=== PATIENT | male | born 1935 | race Caucasian/White ===

== ENCOUNTER 2017-07-03 16:19 | Inpatient (IN) | payer MEDICARE, OTHER ==
[~2017-07-03] VITALS: Ht 182.9 cm; Wt 85.0 kg
[2017-07-03 16:33] VITALS: BP 134/83; PULSE 60; RESP 16; TEMP 99.7; O2SAT 96
[2017-07-03 17:36] LABS: AUTOMATED NEUTROPHIL # 3.9 TH/MM3 (1.8-7.7); BASOPHIL % 0.3 % (0.0-2.0); EOSINOPHIL % 0.7 % (0.0-4.0); HEMATOCRIT 35.2 % (39.0-51.0); LYMPH % 21.9 % (9.0-44.0); LYMPHOCYTE # 1.2 TH/MM3 (1.0-4.8); MEAN CELL VOLUME 92.8 FL (80.0-100.0); MEAN CORPUSCULAR HEMOGLOBIN 31.6 PG (27.0-34.0); MEAN CORPUSCULAR HGB CONC 34.1 % (32.0-36.0); MEAN PLATELET VOLUME 9.1 FL (7.0-11.0); MONOCYTE # 0.4 TH/MM3 (0-0.9); NEUT % 70.1 % (16.0-70.0); PLATELET COUNT 144 TH/MM3 (150-450); RED BLOOD COUNT 3.79 MIL/MM3 (4.50-5.90); RED CELL DISTRIBUTION WIDTH 13.6 % (11.6-17.2); WHITE BLOOD COUNT 5.5 TH/MM3 (4.0-11.0)
[2017-07-03 18:02] LABS: ALBUMIN 3.5 GM/DL (3.4-5.0); ALKALINE PHOSPHATASE 51 U/L (45-117); ALT (GPT) LESS THAN 6 U/L (12-78); AST (GOT) 20 U/L (15-37); BICARBONATE 26.9 MEQ/L (21.0-32.0); BLOOD UREA NITROGEN 28 MG/DL (7-18); CALCIUM 8.5 MG/DL (8.5-10.1); CHLORIDE 104 MEQ/L (98-107); CREATININE 1.08 MG/DL (0.60-1.30); GLOMERULAR FILTRATION RATE 66 ML/MIN (>89); GLUCOSE,RANDOM 266 MG/DL (74-106); SODIUM (NA) 136 MEQ/L (136-145); TOTAL BILIRUBIN ADULT 0.2 MG/DL (0.2-1.0)
[2017-07-03] MEDS ORDERED: ACETAMINOPHEN 325 MG TAB PO ONE (21:00)
[2017-07-03 21:03] VITALS: BP 180/90; PULSE 100; RESP 18; TEMP 97.5; O2SAT 100
--- NOTE | 2017-07-03 21:07 | PD ---
HPI Chief Complaint: Medical Clearance Time Seen by Provider: 20:45 Travel History International Travel<30 days: No Contact w/Intl Traveler<30days: No Traveled to known affect area: No History of Present Illness HPI 82-year-old white male presents to emergency department under [place]cher act by PD. The patient has repetitively called 911. According to the Butcher act the patient does not recall this. He seems confused at times. The patient here states that he does recall calling 911. Police were concerned that he may suffer from self-harm due to increasing confusion. He states that person taking care of him locks him in the house periodically and leaves for 6-8 hours. The patient was recently treated Sunday at [facility] for a UTI. He states it is currently taking antibiotic but he does not know what it is. Patient denies any suicidal or homicidal ideation. PFSH Past Medical History Narrative Medical Arrhythmia, pacemaker, Parkinson's disease, hernia Medical History: Unable to Obtain Tetanus Vaccination: Unknown Past Surgical History Narrative Surgical Pacer Surgical History: Unable to Obtain Social History Alcohol Use: No Tobacco Use: No Substance Use: No Allergies-Medications (Allergen,Severity, Reaction): Coded Allergies: No Known Allergies (Verified Allergy, Severe, 12/01/03) Reported Meds & Prescriptions Reported Meds & Active Scripts Active Active Prescriptions or Reported Medications Unobtainable Review of Systems General / Constitutional: No: Fever, Chills Eyes: No: Visual changes HENT: No: Headaches Cardiovascular: No: Chest Pain or Discomfort Respiratory: No: Shortness of Breath Gastrointestinal: No: Abdominal Pain Genitourinary: No: Dysuria Musculoskeletal: No: Pain Skin: No Rash Neurologic: Positive: Weakness, Coordination Problem (positive Parkinson's tremor) Psychiatric: No: Depression, Suicidal Ideations, Homicidal Ideation Endocrine: No: Polydipsia Hematologic/Lymphatic: No: Easy Bruising Physical Exam Narrative GENERAL: Well-nourished, well-developed patient. SKIN: Warm and dry. Patient has multiple areas of ecchymosis which are in various stages of healing. He has dry flaky skin HEAD: Normocephalic and atraumatic. EYES: No scleral icterus. No injection or drainage. ENT: No nasal drainage noted. Mucous membranes pink. Airway patent. NECK: Supple, trachea midline. Moves head freely without obvious discomfort. CARDIOVASCULAR: Heart sounds somewhat distant. Regular rate and rhythm without murmurs, gallops, or rubs. RESPIRATORY: Breath sounds equal bilaterally. No accessory muscle use. GASTROINTESTINAL: Abdomen soft, non-tender, nondistended. EXTREMITIES: No cyanosis or edema. BACK: Nontender without obvious deformity. No CVA tenderness. NEURO: Patient is alert and oriented. Patient has tremor of Parkinson's. Normal speech. PSYCH: No delusions. No auditory or visual hallucinations. Data Data Last Documented VS Vital Signs Date Time Temp Pulse Resp B/P (MAP) Pulse Ox O2 Delivery O2 Flow Rate FiO2 07/03/17 21:15 78 16 194/88 (123) 99 Room Air 07/03/17 21:03 97.5 Orders Orders Complete Blood Count With Diff (07/03/17 16:42) Comprehensive Metabolic Panel (07/03/17 16:42) Urinalysis - C+S If Indicated (07/03/17 16:42) Psych Screen (07/03/17 16:42) Lactic Acid (07/03/17 20:46) Acetaminophen (Tylenol) (07/03/17 21:00) Urine Culture (07/03/17 20:45) Ceftriaxone Inj (Rocephin Inj) (07/03/17 22:30) Insulin Aspart Inj (Novolog Inj) (07/03/17 22:30) Labs Laboratory Tests Test 07/03/17 16:49 07/03/17 20:45 07/03/17 21:30 White Blood Count 5.5 TH/MM3 Red Blood Count 3.79 MIL/MM3 Hemoglobin 12.0 GM/DL Hematocrit 35.2 % Mean Corpuscular Volume 92.8 FL Mean Corpuscular Hemoglobin 31.6 PG Mean Corpuscular Hemoglobin Concent 34.1 % Red Cell Distribution Width 13.6 % Platelet Count 144 TH/MM3 Mean Platelet Volume 9.1 FL Neutrophils (%) (Auto) 70.1 % Lymphocytes (%) (Auto) 21.9 % Monocytes (%) (Auto) 7.0 % Eosinophils (%) (Auto) 0.7 % Basophils (%) (Auto) 0.3 % Neutrophils # (Auto) 3.9 TH/MM3 Lymphocytes # (Auto) 1.2 TH/MM3 Monocytes # (Auto) 0.4 TH/MM3 Eosinophils # (Auto) 0.0 TH/MM3 Basophils # (Auto) 0.0 TH/MM3 CBC Comment DIFF FINAL Differential Comment Blood Urea Nitrogen 28 MG/DL Creatinine 1.08 MG/DL Random Glucose 266 MG/DL Total Protein 7.0 GM/DL Albumin 3.5 GM/DL Calcium Level 8.5 MG/DL Alkaline Phosphatase 51 U/L Aspartate Amino Transf (AST/SGOT) 20 U/L Alanine Aminotransferase (ALT/SGPT) LESS THAN 6 U/L Total Bilirubin 0.2 MG/DL Sodium Level 136 MEQ/L Potassium Level 4.4 MEQ/L Chloride Level 104 MEQ/L Carbon Dioxide Level 26.9 MEQ/L Anion Gap 5 MEQ/L Estimat Glomerular Filtration Rate 66 ML/MIN Urine Color YELLOW Urine Turbidity CLEAR Urine pH 5.0 Urine Specific [place] 1.022 Urine Protein TRACE mg/dL Urine Glucose (UA) 1000 mg/dL Urine Ketones NEG mg/dL Urine Occult Blood NEG Urine Nitrite NEG Urine Bilirubin NEG Urine Urobilinogen LESS THAN 2.0 MG/DL Urine Leukocyte Esterase SMALL Urine RBC 2 /hpf Urine WBC 13 /hpf Urine Squamous Epithelial Cells 1 /hpf Urine Bacteria RARE /hpf Microscopic Urinalysis Comment CULTURE INDICATED Lactic Acid Level 0.9 mmol/L [facility] Medical Decision Making Medical Screen Exam Complete: Yes Emergency Medical Condition: Yes Medical Record Reviewed: Yes Interpretation(s) Laboratory Tests Test 07/03/17 16:49 07/03/17 20:45 07/03/17 21:30 White Blood Count 5.5 TH/MM3 Red Blood Count 3.79 MIL/MM3 Hemoglobin 12.0 GM/DL Hematocrit 35.2 % Mean Corpuscular Volume 92.8 FL Mean Corpuscular Hemoglobin 31.6 PG Mean Corpuscular Hemoglobin Concent 34.1 % Red Cell Distribution Width 13.6 % Platelet Count 144 TH/MM3 Mean Platelet Volume 9.1 FL Neutrophils (%) (Auto) 70.1 % Lymphocytes (%) (Auto) 21.9 % Monocytes (%) (Auto) 7.0 % Eosinophils (%) (Auto) 0.7 % Basophils (%) (Auto) 0.3 % Neutrophils # (Auto) 3.9 TH/MM3 Lymphocytes # (Auto) 1.2 TH/MM3 Monocytes # (Auto) 0.4 TH/MM3 Eosinophils # (Auto) 0.0 TH/MM3 Basophils # (Auto) 0.0 TH/MM3 CBC Comment DIFF FINAL Differential Comment Blood Urea Nitrogen 28 MG/DL Creatinine 1.08 MG/DL Random Glucose 266 MG/DL Total Protein 7.0 GM/DL Albumin 3.5 GM/DL Calcium Level 8.5 MG/DL Alkaline Phosphatase 51 U/L Aspartate Amino Transf (AST/SGOT) 20 U/L Alanine Aminotransferase (ALT/SGPT) LESS THAN 6 U/L Total Bilirubin 0.2 MG/DL Sodium Level 136 MEQ/L Potassium Level 4.4 MEQ/L Chloride Level 104 MEQ/L Carbon Dioxide Level 26.9 MEQ/L Anion Gap 5 MEQ/L Estimat Glomerular Filtration Rate 66 ML/MIN Urine Color YELLOW Urine Turbidity CLEAR Urine pH 5.0 Urine Specific [place] 1.022 Urine Protein TRACE mg/dL Urine Glucose (UA) 1000 mg/dL Urine Ketones NEG mg/dL Urine Occult Blood NEG Urine Nitrite NEG Urine Bilirubin NEG Urine Urobilinogen LESS THAN 2.0 MG/DL Urine Leukocyte Esterase SMALL Urine RBC 2 /hpf Urine WBC 13 /hpf Urine Squamous Epithelial Cells 1 /hpf Urine Bacteria RARE /hpf Microscopic Urinalysis Comment CULTURE INDICATED Lactic Acid Level 0.9 mmol/L CBC Diagram 07/03/17 16:49 Differential Diagnosis MDM: High Differential diagnoses: Schizophrenia, schizoaffective disorder, bipolar, anxiety, depression, adjustment reaction, mood disorder NOS, ODD, depressive disorder NOS, dementia, dementia with agitation, psychosis NOS, substance induced mood disorder, DMDD, Asperger syndrome, infection,electrolyte abnormality, malingering. Narrative Course Mental health screening discussed with the patient. Psychiatric screen ordered. Patient is given 650 mg of Tylenol by mouth. Patient has a UTI. He's given 1 g Rocephin IV. He is also given 4 units of Novolin R subcutaneous for his elevated glucose. The patient been medically cleared. This is medical clearance for psychiatric admission, UTI, hyperglycemia Diagnosis Primary Impression: Medical clearance for psychiatric admission Additional Impressions: UTI hyperglycemia Scripts Unable to Obtain Active Prescriptions or Reported Meds Condition: Iván Amador Jul 03, 2017 21:07
[2017-07-03 21:15] VITALS: BP 194/88; PULSE 78; RESP 16; O2SAT 99
[2017-07-03 21:57] LABS: BACTERIA, URINE RARE /hpf; BILIRUBIN, URINE NEG (NEG); BLOOD, URINE NEG (NEG); GLUCOSE,URINE 1000 mg/dL (NEG); KETONE, URINE NEG (NEG); NITRITE,URINE NEG (NEG); SQUAMOUS EPITHELIAL CELL URINE 1 /hpf (0-5); URINE COLOR YELLOW (YELLW/STRAW); URINE LEUKOCYTE ESTERASE SMALL (NEG)
[2017-07-03] MEDS ORDERED: INSULIN ASPART 1,000 UNITS/10 ML VIAL SQ ONE (22:30)
[2017-07-03] MEDS ORDERED: cefTRIAXone INJ 1,000 MG in SODIUM CHLORIDE 0.9% INJ 100 ML IV ONE (22:30)
[2017-07-03] MEDS ORDERED: LORazepam 0.5 MG TAB age > 65 yrs PO PRN (23:45)
[2017-07-03] MEDS ORDERED: LORazepam 2 MG/ML VIAL - age > 65 yrs IM PRN (23:45)
[2017-07-03] MEDS ORDERED: ALUMINUM/MAGNESIUM/SIMETH 30 ML CUP PO PRN (23:45)
[2017-07-03] MEDS ORDERED: MAGNESIUM HYDROXIDE SUSP 30 ML CUP PO PRN (23:45)
[2017-07-03] MEDS ORDERED: ACETAMINOPHEN 325 MG TAB PO PRN (23:45)
--- NOTE | 2017-07-04 00:27 | RADRPT ---
EXAM DATE/TIME: 07/04/2017 00:13 [place] COMPARISON: No previous studies available for comparison. INDICATIONS : Altered mental status. RADIATION DOSE: 69.15 CTDIvol (mGy) MEDICAL HISTORY : Dementia. SURGICAL HISTORY : None. ENCOUNTER: Initial ACUITY: 1 day PAIN SCALE: 0/10 LOCATION: cranial TECHNIQUE: Multiple contiguous axial images were obtained of the head. Using automated exposure control and adj ustment of the mA and/or kV according to patient size, radiation dose was kept as low as reasonably a chievable to obtain optimal diagnostic quality images. DICOM format image data is available electro nically for review and comparison. FINDINGS: CEREBRUM: The ventricles are normal for age. No evidence of midline shift, mass lesion, hemorrhage or acute in farction. No extra-axial fluid collections are seen. POSTERIOR FOSSA: The cerebellum and brainstem are intact. The 4th ventricle is midline. The cerebellopontine angle i s unremarkable. EXTRACRANIAL: The visualized portion of the orbits is intact. SKULL: The calvaria is intact. No evidence of skull fracture. CONCLUSION: Negative noncontrast CT. Tim Spring MD on July 04, 2017 at 0:25 Board Certified Radiologist. This report was verified electronically.
[2017-07-04 00:37] VITALS: BP 173/81
[2017-07-04 02:47] VITALS: BP 162/82; PULSE 62; RESP 18; TEMP 97.6; O2SAT 99
[2017-07-04 05:30] VITALS: BP 174/83; PULSE 70; RESP 20; TEMP 98; O2SAT 98
--- NOTE | 2017-07-04 07:59 | EKG ---
Date Performed: 07/03/2017 Time Performed: 20:42:59 PTAGE: 82 years EKG: PROBABLE ATRIAL FIBRILLATION BASELINE ARTIFACT ABNORMAL ECG NO PREVIOUS TRACING DOCTOR: Juventino Gee Interpretating Date/Time 07/04/2017 07:56:03
[2017-07-04] MEDS: NICOTINE 21 MG/24 HR PATCH T-DERMAL SCH (08:24)
[2017-07-04] MEDS ORDERED: GLUCAGON 1 MG/ML VIAL OTHER PRN (11:00)
[2017-07-04] MEDS ORDERED: DEXTROSE 50% IN WATER 50 ML VIAL(D50) IV PUSH PRN (11:00)
[2017-07-04 11:04] LABS: BICARBONATE 27.3 MEQ/L (21.0-32.0); BLOOD UREA NITROGEN 20 MG/DL (7-18); CALCIUM 8.5 MG/DL (8.5-10.1); CHLORIDE 102 MEQ/L (98-107); CHOLESTEROL 175 MG/DL (120-200); GLOMERULAR FILTRATION RATE 72 ML/MIN (>89); GLUCOSE,RANDOM 202 MG/DL (74-106); SODIUM (NA) 136 MEQ/L (136-145); TRIGLYCERIDES 117 MG/DL (42-150)
--- NOTE | 2017-07-04 11:10 | PD.CONS ---
HPI Service [facility] Consult Requested By Reason for Consult Medical management Primary Care Physician Unknown Diagnoses: History of Present Illness This is an 82-year-old male who apparently was Butcher acted and brought to the ED by PD after he was repeatedly calling 911. Patient does not know how he got here and states that he is feeling very bad and he needs to lay down. He is able to give me a history, although not sure how good of a historian he is. He reports a PMH of DM, HTN, glaucoma, hypercholesteremia, IBS , and Parkinson's. He is alert and oriented to self, city, and time. He repeatedly states "help me I am on the verge of collapse". He denies any fevers , chills, nausea, vomiting, or diarrhea. He does endorse dysuria, no frequency or hematuria. He also states that he has pneumonia and that he needs help. Denies any SOB, cough or chest pain. Spoke with nurse who states patient apparently lives with a caregiver. Review of Systems ROS Limitations: Poor Historian Except as stated in HPI: all other systems reviewed are Neg Past Family Social History Allergies: Coded Allergies: No Known Allergies (Verified Allergy, Severe, 12/01/03) Past Medical History HTN DM hypercholesteremia glaucoma of both eyes IBS Parkinson's PVD Past Surgical History Bilateral leg artery surgeries ("to clean them out") eye surgery Pacemaker placement Reported Medications Reported Meds & Active Scripts Active Reported Florastor (Saccharomyces Boulardii) 250 Mg Cap 250 Mg PO BID Percocet (Oxycodone-Acetaminophen) 5-325 mg Tab 1 Tab PO Q6H PRN Zofran (Ondansetron HCl) 8 Mg Tab 8 Mg PO Q8HR PRN Xanax (Alprazolam) 0.5 Mg Tab 0.5 Mg PO TID Sinemet (Carbidopa-Levodopa) 25-100 Mg Tab 3 Tab PO Q8HR Requip (Ropinirole HCl) 0.5 Mg Tab 0.5 Mg PO TID Dorzolamide Opth Drops (Dorzolamide HCl) 2% Soln 1 Drop EACH EYE DAILY Latanoprost Opth Drops (Latanoprost) 0.005% Drops 1 Drop EACH EYE HS Refrigerate until opened. Atorvastatin (Atorvastatin Calcium) 10 Mg Tab 10 Mg PO HS Gabapentin 400 Mg Cap 200 Mg PO HS Gabapentin 100 Mg Cap 100 Mg PO TID Escitalopram (Escitalopram Oxalate) 10 Mg Tab 10 Mg PO DAILY Singulair (Montelukast Sodium) 10 Mg Tab 10 Mg PO DAILY Novolog Inj (Insulin Aspart) 1,000 Unit/10 Ml Vial 0 SQ DIRECTED Sliding Scale as directed. Lantus Inj (Insulin Glargine) 1,000 Unit/10 Ml Vial 17 Units SQ HS Active Ordered Medications Current Medications Medications (Trade) Dose Ordered Sig/Candi Route Start Time Stop Time Status Last Admin (Ativan) 0.5 mg Q12H PRN PO 07/03/17 23:45 (Ativan Inj) 0.5 mg Q12H PRN IM 07/03/17 23:45 (Tylenol) 650 mg Q4H PRN PO 07/03/17 23:45 (Milk Of Magnesia Liq) 30 ml DAILY PRN PO 07/03/17 23:45 (Mag-Al Plus Susp Liq) 30 ml Q6H PRN PO 07/03/17 23:45 (Habitrol 21 Mg Patch.24 Hr) 1 patch DAILY T-DERMAL 07/04/17 09:00 Miscellaneous Information 1 HS T-DERMAL 07/04/17 21:00 (NovoLOG SUPPLEMENTAL SCALE) 1 ACHS SLIDING SCALE SQ 07/04/17 12:00 07/04/17 11:31 (Norvasc) 5 mg DAILY PO 07/04/17 10:45 07/04/17 11:31 (D50w (Vial) Inj) 50 ml UNSCH PRN IV PUSH 07/04/17 11:00 (Glucagon Inj) 1 mg UNSCH PRN OTHER 07/04/17 11:00 (Benadryl) 50 mg HS PRN PO 07/04/17 14:45 (Atarax) 50 mg Q6H PRN PO 07/04/17 14:45 (Xanax) 0.5 mg TID PO 07/04/17 18:00 (Lipitor) 10 mg HS PO 07/04/17 21:00 (Sinemet 25-100 Mg) 3 tab Q8HR PO 07/04/17 22:00 (Trusopt 2% Opth Soln) 1 drop DAILY EACH EYE 07/05/17 09:00 (Lexapro) 10 mg DAILY PO 07/05/17 09:00 (Neurontin) 100 mg TID PO 07/04/17 18:00 (Neurontin) 80,000 mg HS PO 07/04/17 21:00 UNV (Xalatan 0.005% Opth Soln) 1 drop HS EACH EYE 07/04/17 21:00 (Singulair) 10 mg DAILY PO 07/05/17 09:00 (Requip) 0.5 mg TID PO 07/04/17 18:00 (Zofran Odt) 8 mg Q8HR PRN PO 07/04/17 15:15 Family History Mother: [place] Social History Denies the use of tobacco, alcohol, or illicit drug use. Lives with caregiver Teresa 1 daughter who lives in [place] Physical Exam Vital Signs Vital Signs Date Time Temp Pulse Resp B/P (MAP) Pulse Ox O2 Delivery O2 Flow Rate FiO2 07/04/17 05:30 98.0 70 20 174/83 (113) 98 07/04/17 02:47 97.6 62 18 162/82 (108) 99 07/04/17 00:37 88 18 173/81 (111) 98 07/03/17 21:15 78 16 194/88 (123) 99 Room Air 07/03/17 21:03 97.5 100 18 180/90 (120) 100 Room Air 07/03/17 16:33 99.7 60 16 134/83 (100) 96 Physical Exam GENERAL: This is a well-nourished, well-developed patient, appears anxious. SKIN: No rashes, ecchymoses or lesions. Cool and dry. HEAD: Atraumatic. Normocephalic. EYES: Pupils equal round and reactive. No scleral icterus. No injection or drainage. ENT: Nose without bleeding, purulent drainage. Throat without erythema. Airway patent. NECK: Trachea midline. No JVD. CARDIOVASCULAR: Regular rate and rhythm without murmurs, gallops, or rubs. RESPIRATORY: Clear to auscultation. Breath sounds equal bilaterally. No wheezes , rales, or rhonchi. GASTROINTESTINAL: Abdomen soft, non-tender, nondistended. No palpable masses. No guarding. Normoactive bowel sounds in all quadrants. MUSCULOSKELETAL: Extremities without clubbing, cyanosis, or edema. No joint effusion, or edema noted. NEUROLOGICAL: Awake and alert, oriented to self, city, and time. Cranial nerves grossly intact. Moves all extremities and following commands. Bilateral hand tremors noted. Normal speech. Laboratory Laboratory Tests Test 07/03/17 16:49 07/03/17 20:45 07/03/17 21:30 07/04/17 09:06 White Blood Count 5.5 Red Blood Count 3.79 Hemoglobin 12.0 Hematocrit 35.2 Mean Corpuscular Volume 92.8 Mean Corpuscular Hemoglobin 31.6 Mean Corpuscular Hemoglobin Concent 34.1 Red Cell Distribution Width 13.6 Platelet Count 144 Mean Platelet Volume 9.1 Neutrophils (%) (Auto) 70.1 Lymphocytes (%) (Auto) 21.9 Monocytes (%) (Auto) 7.0 Eosinophils (%) (Auto) 0.7 Basophils (%) (Auto) 0.3 Neutrophils # (Auto) 3.9 Lymphocytes # (Auto) 1.2 Monocytes # (Auto) 0.4 Eosinophils # (Auto) 0.0 Basophils # (Auto) 0.0 CBC Comment DIFF FINAL Differential Comment Blood Urea Nitrogen 28 Creatinine 1.08 Random Glucose 266 Total Protein 7.0 Albumin 3.5 Calcium Level 8.5 Alkaline Phosphatase 51 Aspartate Amino Transf (AST/SGOT) 20 Alanine Aminotransferase (ALT/SGPT) LESS THAN 6 Total Bilirubin 0.2 Sodium Level 136 Potassium Level 4.4 Chloride Level 104 Carbon Dioxide Level 26.9 Anion Gap 5 Estimat Glomerular Filtration Rate 66 Urine Color YELLOW Urine Turbidity CLEAR Urine pH 5.0 Urine Specific [place] 1.022 Urine Protein TRACE Urine Glucose (UA) 1000 Urine Ketones NEG Urine Occult Blood NEG Urine Nitrite NEG Urine Bilirubin NEG Urine Urobilinogen LESS THAN 2.0 Urine Leukocyte Esterase SMALL Urine RBC 2 Urine WBC 13 Urine Squamous Epithelial Cells 1 Urine Bacteria RARE Microscopic Urinalysis Comment CULTURE INDICATED Lactic Acid Level 0.9 Date/Time Source Procedure Growth Status 07/03/17 20:45 Urine Random Urine Urine Culture Pending Received Result Diagram: 07/03/17 1649 07/03/17 1649 Assessment and Plan Assessment and Plan 82-year- old male with PMH significant for HTN, DM, hypercholesteremia, glaucoma , PVD and Parkinson's who presented to the ED under a PD Butcher Act after patient repeatedly called 911. [facility] consulted for medical management. Acute adjustment disorder -Treatment per psychiatry - CT of head negative - + UA which could contribute to mood changes given the fact that he is elderly UTI -Provided with 1 mg of IV Rocephin while in the ED, no fevers overnight or today. -Recheck culture and sensitivity on urine pending. HTN, uncontrolled Hypercholesteremia -Start amlodipine 5 mg daily, continue trending BPs and adjust medications accordingly. - Continue home dose of Atorvastatin DM II, uncontrolled -Hemoglobin A1c 9.2 -ADA diet, Accu-Cheks with insulin sliding scale -Patient on 17 units of Lantus at bedtime at home, will start Lantus 10 units tonight -Continue following blood sugars and adjusting accordingly. Parkinson's - Continue Sinement 25-100, and Requip - Fall precautions Glaucoma - Continue Xalatan eye gtts DVT prophylaxis-ambulation Thank you for this consultation, will continue to follow along. Angelica Bray Jul 04, 2017 11:10
[2017-07-04] MEDS ORDERED: ZOFR8TAB PO (11:19)
[2017-07-04] MEDS ORDERED: DORZ2SOL EACH EYE (11:19)
[2017-07-04] MEDS ORDERED: MONT10TA2 PO (11:19)
[2017-07-04] MEDS ORDERED: GABA100C4 PO (11:19)
[2017-07-04] MEDS ORDERED: ALPR.5 PO (11:19)
[2017-07-04] MEDS ORDERED: LATA0.002 EACH EYE (11:19)
[2017-07-04] MEDS ORDERED: FLOR250C PO (11:19)
[2017-07-04] MEDS ORDERED: ESCI10TA PO (11:19)
[2017-07-04] MEDS ORDERED: ATOR10TA15 PO (11:19)
[2017-07-04] MEDS ORDERED: PERC5TAB12 PO (11:19)
[2017-07-04] MEDS ORDERED: LANTUS2P SQ (11:19)
[2017-07-04] MEDS ORDERED: ROPI.5 PO (11:19)
[2017-07-04] MEDS ORDERED: SINE25TA PO (11:19)
[2017-07-04] MEDS ORDERED: GABA400C5 PO (11:19)
[2017-07-04] MEDS ORDERED: NOVOLOGP2 SQ (11:19)
[2017-07-04 11:30] LABS: CHOLESTEROL/ HDL RATIO 3.79 RATIO; FREE T4 0.97 NG/DL (0.76-1.46); HDL CHOLESTEROL 46.1 MG/DL (40.0-60.0); LDL CHOLESTEROL 106 MG/DL (0-99)
[2017-07-04] MEDS: amLODIPine BESYLATE 5 MG TAB PO SCH (11:31)
[2017-07-04] MEDS: INSULIN ASPART SUPPLEMENTAL SCALE SQ SCH ×3 (11:31→21:00)
[2017-07-04 13:10] LABS: HEMOGLOBIN A1C 9.2 % (4.3-6.0)
[2017-07-04] MEDS ORDERED: diphenhydrAMINE HCL 50 MG CAP PO PRN (14:45)
[2017-07-04] MEDS ORDERED: hydrOXYzine HCL 50 MG TAB PO PRN (14:45)
--- NOTE | 2017-07-04 15:09 | HHI.HP ---
Provisional Diagnosis Admission Date Jul 03, 2017 at 23:22 [place]. Adjustment disorder with mixed disturbances of emotion and conduct t 43.25 Parkinson's disease G 20 Certification of Person's Competence To Provide Express and Informed Consent I have personally examined Jose Chisholm , a person being served at [facility] on, Jul 04, 2017 14:55. Express and informed consent means consent voluntarily given in writing, by a competent person, after sufficient explanation and disclosure of the subject matter involved to enable the person to make a knowing and willful decision without any element of force, fraud, deceit, duress, or other form of constraint or coercion. This person is 18 years of age or older, is not now known to be incompetent to consent to treatment with a guardian advocate, and does not have a health care surrogate or proxy currently making medical treatment decisions. I have found this person to be one of the following: [] Competent to provide express and informed consent, as defined above, for voluntary admission to this facility and is competent to provide express and informed consent for treatment. He/she has the consistent capacity to make well reasoned, willful, and knowing decisions concerning his or her medical or mental health treatment. The person fully and consistently understands the purpose of the admission for examination/placement and is fully capable of personally exercising all rights assured [place] [] Incompetent to provide express and informed consent to voluntary admission, and this is incompetent to provide express and informed consent to treatment. The person must be transferred to involuntary status and a petition for a guardian advocate filed with the Circuit Court. [xxx] Refusing to provide express and informed consent to voluntary admission but is competent to provide express and informed consent for treatment. The person must be discharged or transferred to involuntary status. Form shall be completed within 24 hours of a person's arrival at the receiving facility and filed in the clinical record of each person: 1. Admitted on a voluntary basis 2. Permitted to provide express and informed consent to his/her own treatment 3. Allowed to transfer from involuntary to voluntary status 4. Prior to permitting a person to consent to his or her own treatment after having been previously found incompetent to consent to treatment. History of Present Illness Capacity: Lacks Capacity (patient less capacity sign permission patient has capacity to sign for medication) HPI She is an 82-year-old white male who comes here under [place] act signed of the [employer] [employer] dated 07/03/17 and 2:55 PM the document reviewed. States Mr. Chisholm calls 911 constantly and upon arrival does not remember doing so when spoken to him he seems heavily confused at home and states he feels he may Phan keeps saying "it will be the end of me" and seems to need help sure it has apparently refused services from [facility] and he is believe that without assistance he may harm himself. Patient seen screened in the ED urine toxicology negative bladder: Negative. At the present time patient resting quietly in his bed. Nurse Susan present throughout session patient has some obvious flagrant Parkinson type tremor is noted both upper extremities right more than left. He does have tremulous speech however his oriented to person place time and situation. Though it appears she has some delusional type ideation related to the relationship with his caregiver. However DCF is involved. Patient is financially well off clinically be some financial issues going on in any event at this time patient does denies suicidality denies homicidality. Voices or visions. Patient denies any prior psychiatric contact or hospitalizations psychotropic medications though he is on Lexapro at the present time. Patient does have a caregiver in the home with them. Is uncertain about any other family members at this time. At this time patient does meet criteria for acute inpatient psychiatric hospitalization of the [place]cher act I'll do first opinion request second opinion both feel he does have capacity at this time. Though I will reconsider that and reevaluate that in the morning Review of Systems Constitutional: DENIES: Diaphoretic episodes, Fatigue, Fever, Weight gain, Weight loss, Chills, Dizziness, Change in appetite, Night Sweats Endocrine: DENIES: Heat/cold intolerance, Polydipsia, Polyuria, Polyphagia Eyes: DENIES: Blurred vision, Diplopia, Eye inflammation, Eye pain, Vision loss , Photosensitivity, Double Vision Ears, nose, mouth, throat: DENIES: Tinnitus, Hearing loss, Vertigo, Nasal discharge, Oral lesions, Throat pain, Hoarseness, Ear Pain, Running Nose, Epistaxis, Sinus Pain, Toothache, Odynophagia Respiratory: DENIES: Apneas, Cough, Snoring, Wheezing, Hemoptysis, Sputum production, Shortness of breath Cardiovascular: DENIES: Chest pain, Palpitations, Syncope, Dyspnea on Exertion , PND, Lower Extremity Edema, Orthopnea, Claudication Gastrointestinal: DENIES: Abdominal pain, Black stools, Bloody stools, Constipation, Diarrhea, Nausea, Vomiting, Difficulty Swallowing, Anorexia Genitourinary: DENIES: Sexual dysfunction, Urinary frequency, Urinary incontinence, Urgency, Hematuria, Dysuria, Nocturia, Penile Discharge, Testicular Pain, Testicular Swelling Musculoskeletal: DENIES: Joint pain, Muscle aches, Stiffness, Joint Swelling, Back pain, Neck pain Integumentary: DENIES: Abnormal pigmentation, Nail changes, Pruritus, Rash Hematologic/lymphatic: DENIES: Bruising, Lymphadenopathy Immunologic/allergic: DENIES: Eczema, Urticaria Neurologic: DENIES: Abnormal gait, Headache, Localized weakness, Paresthesias, Seizures, Speech Problems, Tremor, Poor Balance Psychiatric: COMPLAINS OF: Anxiety, Depression Past Psych History Psychological trauma history Patient denies Violence risk - others (6 mos) Low Violence risk - self (6 mos) Low to moderate Substance Abuse History Drugs/Alcohol past 12 months Patient denies Past Family Social History Coded Allergies: No Known Allergies (Verified Allergy, Severe, 12/01/03) Reported Medications Saccharomyces Boulardii (Florastor) 250 Mg Cap, 250 MG PO BID for Nutritional Supplement, CAP 0 Refills 07/04/17 Oxycodone-Acetaminophen (Percocet) 5-325 mg Tab, 1 TAB PO Q6H Y for PAIN, TAB 0 Refills 07/04/17 Ondansetron (Zofran) 8 Mg Tab, 8 MG PO Q8HR Y for NAUSEA OR VOMITING, TAB 0 Refills 07/04/17 Alprazolam (Xanax) 0.5 Mg Tab, 0.5 MG PO TID, TAB 0 Refills 07/04/17 Carbidopa-Levodopa (Sinemet) 25-100 Mg Tab, 3 TAB PO Q8HR for Parkinson Disease Mgmt, #90 TAB 0 Refills 07/04/17 Ropinirole (Requip) 0.5 Mg Tab, 0.5 MG PO TID, #90 TAB 0 Refills 07/04/17 Dorzolamide Opth Drops (Dorzolamide Opth Drops) 2% Soln, 1 DROP EACH EYE DAILY for Glaucoma, #1 BOTTLE 0 Refills 07/04/17 Latanoprost Opth Drops (Latanoprost Opth Drops) 0.005% Drops, 1 DROP EACH EYE HS for Glaucoma, #2.5 ML 0 Refills Refrigerate until opened. 07/04/17 Atorvastatin (Atorvastatin) 10 Mg Tab, 10 MG PO HS for Cholesterol Management, # 30 TAB 0 Refills 07/04/17 Gabapentin (Gabapentin) 400 Mg Cap, 200 CAP PO HS, #30 CAP 0 Refills 07/04/17 Gabapentin (Gabapentin) 100 Mg Cap, 100 MG PO TID, #90 CAP 0 Refills 07/04/17 Escitalopram (Escitalopram) 10 Mg Tab, 10 MG PO DAILY, #30 TAB 0 Refills 07/04/17 Montelukast (Singulair) 10 Mg Tab, 10 MG PO DAILY, #30 TAB 0 Refills 07/04/17 Insulin Aspart Inj (Novolog Inj) 1,000 Unit/10 Ml Vial, 0 SQ DIRECTED for Blood Sugar Management, #10 ML 0 Refills Sliding Scale as directed. 07/04/17 Insulin Glargine Inj (Lantus Inj) 1,000 Unit/10 Ml Vial, 17 UNITS SQ HS for Blood Sugar Management, VIAL 0 Refills 07/04/17 Current Medications Medications (Trade) Dose Ordered Sig/Candi Route Start Time Stop Time Status Last Admin (Ativan) 0.5 mg Q12H PRN PO 07/03/17 23:45 (Ativan Inj) 0.5 mg Q12H PRN IM 07/03/17 23:45 (Tylenol) 650 mg Q4H PRN PO 07/03/17 23:45 (Milk Of Magnesia Liq) 30 ml DAILY PRN PO 07/03/17 23:45 (Mag-Al Plus Susp Liq) 30 ml Q6H PRN PO 07/03/17 23:45 (Habitrol 21 Mg Patch.24 Hr) 1 patch DAILY T-DERMAL 07/04/17 09:00 Miscellaneous Information 1 HS T-DERMAL 07/04/17 21:00 (NovoLOG SUPPLEMENTAL SCALE) 1 ACHS SLIDING SCALE SQ 07/04/17 12:00 07/04/17 11:31 (Norvasc) 5 mg DAILY PO 07/04/17 10:45 07/04/17 11:31 (D50w (Vial) Inj) 50 ml UNSCH PRN IV PUSH 07/04/17 11:00 (Glucagon Inj) 1 mg UNSCH PRN OTHER 07/04/17 11:00 Family Psych History Patient denies Social History 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 2) Patient verbal able access healthcare Physical Exam Patient medically cleared ED exam reviewed and agreed with at the present time patient resting quietly in bed he is in no acute distress though others anxiety and his tremors noted. Is in no respiratory distress no complaints of abdominal pain Vital Signs Vital Signs Date Time Temp Pulse Resp B/P (MAP) Pulse Ox O2 Delivery O2 Flow Rate FiO2 07/04/17 05:30 98.0 70 20 174/83 (113) 98 07/03/17 21:15 Room Air I/O 07/04/17 07/04/17 07/05/17 08:00 16:00 00:00 Intake Total 0 ml Balance 0 ml Lab Results Test 07/03/17 16:49 07/03/17 20:45 07/03/17 21:30 07/04/17 09:06 White Blood Count 5.5 TH/MM3 Red Blood Count 3.79 MIL/MM3 Hemoglobin 12.0 GM/DL Hematocrit 35.2 % Mean Corpuscular Volume 92.8 FL Mean Corpuscular Hemoglobin 31.6 PG Mean Corpuscular Hemoglobin Concent 34.1 % Red Cell Distribution Width 13.6 % Platelet Count 144 TH/MM3 Mean Platelet Volume 9.1 FL Neutrophils (%) (Auto) 70.1 % Lymphocytes (%) (Auto) 21.9 % Monocytes (%) (Auto) 7.0 % Eosinophils (%) (Auto) 0.7 % Basophils (%) (Auto) 0.3 % Neutrophils # (Auto) 3.9 TH/MM3 Lymphocytes # (Auto) 1.2 TH/MM3 Monocytes # (Auto) 0.4 TH/MM3 Eosinophils # (Auto) 0.0 TH/MM3 Basophils # (Auto) 0.0 TH/MM3 CBC Comment DIFF FINAL Differential Comment Blood Urea Nitrogen 28 MG/DL 20 MG/DL Creatinine 1.08 MG/DL 1.00 MG/DL Random Glucose 266 MG/DL 202 MG/DL Total Protein 7.0 GM/DL Albumin 3.5 GM/DL Calcium Level 8.5 MG/DL 8.5 MG/DL Alkaline Phosphatase 51 U/L Aspartate Amino Transf (AST/SGOT) 20 U/L Alanine Aminotransferase (ALT/SGPT) LESS THAN 6 U/L Total Bilirubin 0.2 MG/DL Sodium Level 136 MEQ/L 136 MEQ/L Potassium Level 4.4 MEQ/L 4.2 MEQ/L Chloride Level 104 MEQ/L 102 MEQ/L Carbon Dioxide Level 26.9 MEQ/L 27.3 MEQ/L Anion Gap 5 MEQ/L 7 MEQ/L Estimat Glomerular Filtration Rate 66 ML/MIN 72 ML/MIN Urine Color YELLOW Urine Turbidity CLEAR Urine pH 5.0 Urine Specific [place] 1.022 Urine Protein TRACE mg/dL Urine Glucose (UA) 1000 mg/dL Urine Ketones NEG mg/dL Urine Occult Blood NEG Urine Nitrite NEG Urine Bilirubin NEG Urine Urobilinogen LESS THAN 2.0 MG/DL Urine Leukocyte Esterase SMALL Urine RBC 2 /hpf Urine WBC 13 /hpf Urine Squamous Epithelial Cells 1 /hpf Urine Bacteria RARE /hpf Microscopic Urinalysis Comment CULTURE INDICATED Lactic Acid Level 0.9 mmol/L Hemoglobin A1c 9.2 % Triglycerides Level 117 MG/DL Cholesterol Level 175 MG/DL LDL Cholesterol 106 MG/DL HDL Cholesterol 46.1 MG/DL Cholesterol/HDL Ratio 3.79 RATIO Vitamin B12 Level 490 PG/ML 25-Hydroxy Vitamin D Total 20.8 ng/ML Free Thyroxine 0.97 NG/DL Thyroid Stimulating Hormone 3rd Gen 1.540 uIU/ML Date/Time Source Procedure Growth Status 07/03/17 20:45 Urine Random Urine Urine Culture Pending Received Mental Status Examination Appearance: Appropriate Consciousness: Alert Orientation: Person, Place, Date/Time Motor Activity: Other Speech: Hesitant, Stuttering Language: Adequate Fund of Knowledge: Adequate Attention and Concentration: Other (fair) Memory: Impaired Mood: Sad Affect: Other (increase range and intensity) Thought Process & Associations: Loose associations, Circumstantial Thought Content: Other (disorganized) Hallucination Type: None (denies) Delusion Type: Paranoid (mildly focused on cartography teacher) Suicidal Ideation: No Suicidal Plan: No Suicidal Intention: No Homicidal Ideation: No Homicidal Plan: No Homicidal Intention: No Insight: Poor Judgment: Poor Assessment & Plan Problem List: (1) Acute adjustment disorder with mixed disturbance of emotions and conduct ICD Codes: F43.25 - Adjustment disorder with mixed disturbance of emotions and conduct (2) Parkinsons disease ICD Codes: G20 - Parkinson's disease Assessment & Plan Estimated LOS: 3-5 days this time patient meets criteria for involuntary psychiatric hospitalization of the [place]cher act I'll do first opinion request second opinion. I feel this of capacity sign for medication. Both hospitalist consult with us later patient is patient's Parkinson's disease and other medical issues. We will continue his medications per the med reconciliation Discharge Planning To be determined Request HC Surrog/Guard Advoc?: No Darrell Lomeli MD Jul 04, 2017 15:09
[2017-07-04] MEDS ORDERED: ONDANSETRON ODT 4 MG TAB PO PRN (15:15)
[2017-07-04] MEDS: GABAPENTIN 100 MG CAP PO SCH ×2 (17:49→21:13)
[2017-07-04] MEDS: ALPRAZolam 0.5 MG TAB PO SCH (17:49)
[2017-07-04 18:32] VITALS: BP 168/72; PULSE 77; RESP 20; TEMP 98.2; O2SAT 98
[2017-07-04] MEDS ORDERED: NON-FORMULARY DRUG (Saccharomyces Boulardii (Florastor) 250 MG) PO SCH (21:00)
[2017-07-04] MEDS ORDERED: INSULIN DETEMIR 100 UNITS/ML VIAL SQ SCH (21:00)
[2017-07-04] MEDS: REMOVE OLD NICOTINE PATCH T-DERMAL SCH (21:00)
[2017-07-04] MEDS: ATORVASTATIN 10 MG TAB PO SCH (21:12)
[2017-07-04] MEDS: CARBIDOPA/LEVODOPA 25 MG/100 MG TAB PO SCH (21:13)
[2017-07-04] MEDS: LATANOPROST 0.005% OPHT SOLN 2.5 ML BTL EACH EYE SCH (21:17)
[2017-07-05 05:00] VITALS: BP 130/71; PULSE 60; RESP 15; TEMP 97.8; O2SAT 95
[2017-07-05] MEDS: CARBIDOPA/LEVODOPA 25 MG/100 MG TAB PO SCH ×3 (05:55→20:44)
[2017-07-05] MEDS: INSULIN ASPART SUPPLEMENTAL SCALE SQ SCH ×4 (07:45→21:25)
[2017-07-05] MEDS: ALPRAZolam 0.5 MG TAB PO SCH ×3 (08:45→18:48)
[2017-07-05] MEDS: ESCITALOPRAM OXALATE 10 MG TAB PO SCH (08:45)
[2017-07-05] MEDS: MONTELUKAST SODIUM 10 MG TAB PO SCH (08:45)
[2017-07-05] MEDS: amLODIPine BESYLATE 5 MG TAB PO SCH (08:45)
[2017-07-05] MEDS: GABAPENTIN 100 MG CAP PO SCH ×4 (08:46→20:43)
[2017-07-05] MEDS: NICOTINE 21 MG/24 HR PATCH T-DERMAL SCH (08:48)
[2017-07-05] MEDS: DORZOLAMIDE 2% OPTH SOLN 200 DROP/10 ML BTLO EACH EYE SCH (09:00)
--- NOTE | 2017-07-05 11:25 | HHI.PYPN ---
Subjective Remarks Patient seen in day room with nurse Halina, chart reviewed, patient discussed with nurse. Patient compliant medication. Patient continues the severe tremors related to his Parkinson's disease, he is somewhat anxious also though he is oriented to place time and situation. He does denies suicidality homicidality voices or visions. Need to verify with caregiver patient situation this home. Review of Systems Except as stated in HPI: all other systems reviewed are Neg Mental Status Examination Appearance: Appropriate Consciousness: Alert Orientation: Person, Place, Date/Time Motor Activity: Other Speech: Hesitant, Stuttering Language: Adequate Fund of Knowledge: Adequate Attention and Concentration: Other (fair) Memory: Impaired Mood: Sad Affect: Other (increase range and intensity) Thought Process & Associations: Loose associations, Circumstantial Thought Content: Other (disorganized) Hallucination Type: None (denies) Delusion Type: Paranoid (mildly focused on town clerk) Suicidal Ideation: No Suicidal Plan: No Suicidal Intention: No Homicidal Ideation: No Homicidal Plan: No Homicidal Intention: No Insight: Poor Judgment: Poor Results Labs Date/Time Source Procedure Growth Status 07/03/17 20:45 Urine Random Urine Urine Culture - Preliminary IMMATURE GROWTH - REINCUBATE Resulted Vitals/IOs Vital Signs Date Time Temp Pulse Resp B/P (MAP) Pulse Ox O2 Delivery O2 Flow Rate FiO2 07/05/17 05:00 97.8 60 15 130/71 (90) 95 07/03/17 21:15 Room Air Intake and Output 07/05/17 07/05/17 07/06/17 08:00 16:00 00:00 Intake Total 0 ml 360 ml Balance 0 ml 360 ml Assessment & Plan Problem List: (1) Acute adjustment disorder with mixed disturbance of emotions and conduct ICD Codes: F43.25 - Adjustment disorder with mixed disturbance of emotions and conduct (2) Parkinsons disease ICD Codes: G20 - Parkinson's disease Assessment & Plan Estimated LOS: days patient seems somewhat anxious and perhaps slightly depressed. It appears she has somewhat of a chaotic relationship with his caregiver. This may be further investigated. For now continue treatment Justification for Cont. Inpt. This time patient will decompensate if not place to appropriate level of care Discharge Planning Hopefully to return to his own home Request HC Surrog/Guard Advoc?: No Darrell Lomeli MD Jul 05, 2017 11:25
--- NOTE | 2017-07-05 11:39 | HHI.PR ---
Subjective Remarks Follow-up for UTI, HTN, and DM. Patient seen and examined up to chair in day room. He tells me that someone has taken his belongings which were in a blue bag and locked them up. He sates that around 11pm last night they locked his things up and he is agitated because he desperately need these. He denies any cough, SOB, fevers, chills, N/V/D, he does endorse dysuria and states that it bass when he urinates. Spoke with nurse who tells me that patient has had some confusion and is worried that his caregiver will take his money and he will not have access to his bank accounts. Objective Vitals Vital Signs Date Time Temp Pulse Resp B/P (MAP) Pulse Ox O2 Delivery O2 Flow Rate FiO2 07/05/17 05:00 97.8 60 15 130/71 (90) 95 07/04/17 18:32 98.2 77 20 168/72 (104) 98 I/O 07/04/17 07/04/17 07/04/17 07/05/17 07/05/17 07/05/17 07:00 15:00 23:00 07:00 15:00 23:00 Intake Total 0 ml 480 ml 0 ml 360 ml Balance 0 ml 480 ml 0 ml 360 ml Intake Oral 0 ml 480 ml 0 ml 360 ml # Voids 2 1 2 Result Diagram: 07/03/17 1649 07/04/17 0906 Imaging Last Impressions Head CT 07/03/17 0000 Signed Impressions: Service Date/Time: Tuesday, July 04, 2017 00:13 - CONCLUSION: Negative noncontrast CT. Tim Spring MD Objective Remarks GENERAL: This is a well-nourished, well-developed patient, appears anxious. SKIN: Cool and dry. HEAD: Atraumatic. Normocephalic. EYES: Pupils equal round and reactive. No scleral icterus. No injection or drainage. ENT: Airway patent. NECK: Trachea midline. No JVD. CARDIOVASCULAR: Regular rate and rhythm without murmurs, gallops, or rubs. RESPIRATORY: Clear to auscultation. Breath sounds equal bilaterally. No wheezes , rales, or rhonchi. GASTROINTESTINAL: Abdomen soft, non-tender, nondistended. No guarding. Normoactive bowel sounds in all quadrants. MUSCULOSKELETAL: Extremities without clubbing, cyanosis, or edema. No joint effusion, or edema noted. NEUROLOGICAL: Awake and alert, some confusion. Cranial nerves grossly intact. Moves all extremities and following commands. Bilateral hand tremors noted. Normal speech. A/P Assessment and Plan 82-year- old male with PMH significant for HTN, DM, hypercholesteremia, glaucoma , PVD and Parkinson's who presented to the ED under a PD [place]cher Act after patient repeatedly called 911. [facility] consulted for medical management. Acute adjustment disorder -Treatment per psychiatry - CT of head negative - + UA with gram negative rods, could contribute to mood changes given the fact that he is elderly UTI -Provided with 1 mg of IV Rocephin while in the ED, no fevers overnight or today. - Culture growing gram negative rods, started on PO Cipro 500mg BID - +dysuria, afebrile HTN, uncontrolled Hypercholesteremia - Contineu amlodipine 5 mg daily, BP stable - Continue home dose of Atorvastatin DM II, uncontrolled -Hemoglobin A1c 9.2 -ADA diet, Accu-Cheks with insulin sliding scale -Patient on 17 units of Lantus at bedtime at home, Increase Lantus to 13 units HS -Continue following blood sugars and adjusting accordingly. Parkinson's - Continue Sinement 25-100, and Requip - Fall precautions Glaucoma - Continue Xalatan eye gtts DVT prophylaxis-ambulation Discussed with nurse. Angelica Bray Jul 05, 2017 11:38
--- NOTE | 2017-07-05 11:47 | PD.PSY.CON ---
Provisional Diagnosis Admission Date Jul 03, 2017 at 23:22 [place]. Adjustment disorder with mixed disturbances of emotion and conduct t 43.25 Parkinson's disease G 20 History of Present Illness Service Psychiatry Consult Requested By Psychiatry Reason for Consult Second opinion Primary Care Physician Unknown HPI She is an 82-year-old white male who comes here under [place] act signed of the [email or web address] dated 07/03/17 and 2:55 PM the document reviewed. States Mr. Chisholm calls 911 constantly and upon arrival does not remember doing so when spoken to him he seems heavily confused at home and states he feels he may Phan keeps saying "it will be the end of me" and seems to need help sure it has apparently refused services from [facility] and he is believe that without assistance he may harm himself. Patient seen screened in the ED urine toxicology negative bladder: Negative. At the present time patient resting quietly in his bed. Nurse Susan present throughout session patient has some obvious flagrant Parkinson type tremor is noted both upper extremities right more than left. He does have tremulous speech however his oriented to person place time and situation. Though it appears she has some delusional type ideation related to the relationship with his caregiver. However DCF is involved. Patient is financially well off clinically be some financial issues going on in any event at this time patient does denies suicidality denies homicidality. Voices or visions. Patient denies any prior psychiatric contact or hospitalizations psychotropic medications though he is on Lexapro at the present time. Patient does have a caregiver in the home with them. Is uncertain about any other family members at this time. At this time patient does meet criteria for acute inpatient psychiatric hospitalization of the [place]cher act I'll do first opinion request second opinion both feel he does have capacity at this time. Though I will reconsider that and reevaluate that in the morning. The patient is an 82 years old man, brought to the hospital on the [place] at after he was found by police very confused, illogical and unable to give any logical answer. Consulted to me for second opinion. Patient is very confused, he reports good mood, denies suicidal and homicidal ideation, he denies visual and auditory hallucinations, but the patient doesn't know the reason of his hospitalization, he is disoriented in time and place. Past Family Social History Coded Allergies: No Known Allergies (Verified Allergy, Severe, 12/01/03) Reported Medications Saccharomyces Boulardii (Florastor) 250 Mg Cap, 250 MG PO BID for Nutritional Supplement, CAP 0 Refills 07/04/17 Oxycodone-Acetaminophen (Percocet) 5-325 mg Tab, 1 TAB PO Q6H Y for PAIN, TAB 0 Refills 07/04/17 Ondansetron (Zofran) 8 Mg Tab, 8 MG PO Q8HR Y for NAUSEA OR VOMITING, TAB 0 Refills 07/04/17 Alprazolam (Xanax) 0.5 Mg Tab, 0.5 MG PO TID, TAB 0 Refills 07/04/17 Carbidopa-Levodopa (Sinemet) 25-100 Mg Tab, 3 TAB PO Q8HR for Parkinson Disease Mgmt, #90 TAB 0 Refills 07/04/17 Ropinirole (Requip) 0.5 Mg Tab, 0.5 MG PO TID, #90 TAB 0 Refills 07/04/17 Dorzolamide Opth Drops (Dorzolamide Opth Drops) 2% Soln, 1 DROP EACH EYE DAILY for Glaucoma, #1 BOTTLE 0 Refills 07/04/17 Latanoprost Opth Drops (Latanoprost Opth Drops) 0.005% Drops, 1 DROP EACH EYE HS for Glaucoma, #2.5 ML 0 Refills Refrigerate until opened. 07/04/17 Atorvastatin (Atorvastatin) 10 Mg Tab, 10 MG PO HS for Cholesterol Management, # 30 TAB 0 Refills 07/04/17 Gabapentin (Gabapentin) 400 Mg Cap, 200 MG PO HS, #30 CAP 0 Refills 07/04/17 Gabapentin (Gabapentin) 100 Mg Cap, 100 MG PO TID, #90 CAP 0 Refills 07/04/17 Escitalopram (Escitalopram) 10 Mg Tab, 10 MG PO DAILY, #30 TAB 0 Refills 07/04/17 Montelukast (Singulair) 10 Mg Tab, 10 MG PO DAILY, #30 TAB 0 Refills 07/04/17 Insulin Aspart Inj (Novolog Inj) 1,000 Unit/10 Ml Vial, 0 SQ DIRECTED for Blood Sugar Management, #10 ML 0 Refills Sliding Scale as directed. 07/04/17 Insulin Glargine Inj (Lantus Inj) 1,000 Unit/10 Ml Vial, 17 UNITS SQ HS for Blood Sugar Management, VIAL 0 Refills 07/04/17 Current Medications Medications (Trade) Dose Ordered Sig/Candi Route Start Time Stop Time Status Last Admin (Ativan) 0.5 mg Q12H PRN PO 07/03/17 23:45 (Ativan Inj) 0.5 mg Q12H PRN IM 07/03/17 23:45 (Tylenol) 650 mg Q4H PRN PO 07/03/17 23:45 (Milk Of Magnesia Liq) 30 ml DAILY PRN PO 07/03/17 23:45 (Mag-Al Plus Susp Liq) 30 ml Q6H PRN PO 07/03/17 23:45 (Habitrol 21 Mg Patch.24 Hr) 1 patch DAILY T-DERMAL 07/04/17 09:00 Miscellaneous Information 1 HS T-DERMAL 07/04/17 21:00 (NovoLOG SUPPLEMENTAL SCALE) 1 ACHS SLIDING SCALE SQ 07/04/17 12:00 07/05/17 11:29 (Norvasc) 5 mg DAILY PO 07/04/17 10:45 07/05/17 08:45 (D50w (Vial) Inj) 50 ml UNSCH PRN IV PUSH 07/04/17 11:00 (Glucagon Inj) 1 mg UNSCH PRN OTHER 07/04/17 11:00 (Benadryl) 50 mg HS PRN PO 07/04/17 14:45 (Atarax) 50 mg Q6H PRN PO 07/04/17 14:45 (Xanax) 0.5 mg TID PO 07/04/17 18:00 07/05/17 08:45 (Lipitor) 10 mg HS PO 07/04/17 21:00 07/04/17 21:12 (Sinemet 25-100 Mg) 3 tab Q8HR PO 07/04/17 22:00 07/05/17 05:55 (Trusopt 2% Opth Soln) 1 drop DAILY EACH EYE 07/05/17 09:00 07/05/17 09:00 (Lexapro) 10 mg DAILY PO 07/05/17 09:00 07/05/17 08:45 (Neurontin) 100 mg TID PO 07/04/17 18:00 07/05/17 08:46 (Neurontin) 200 mg HS PO 07/04/17 21:00 07/04/17 21:13 (Xalatan 0.005% Opth Soln) 1 drop HS EACH EYE 07/04/17 21:00 07/04/17 21:17 (Singulair) 10 mg DAILY PO 07/05/17 09:00 07/05/17 08:45 (Requip) 0.5 mg TID PO 07/04/17 18:00 07/05/17 08:45 (Zofran Odt) 8 mg Q8HR PRN PO 07/04/17 15:15 (Levemir Inj) 10 units HS SQ 07/04/17 21:00 07/04/17 21:14 Patient's Strengths (min. 2) Patient verbal able access healthcare Physical Exam Vital Signs Vital Signs Date Time Temp Pulse Resp B/P (MAP) Pulse Ox O2 Delivery O2 Flow Rate FiO2 07/05/17 05:00 97.8 60 15 130/71 (90) 95 07/03/17 21:15 Room Air I/O 07/05/17 07/05/17 07/06/17 08:00 16:00 00:00 Intake Total 0 ml 360 ml Balance 0 ml 360 ml Lab Results Date/Time Source Procedure Growth Status 07/03/17 20:45 Urine Random Urine Urine Culture - Preliminary IMMATURE GROWTH - REINCUBATE Resulted Mental Status Examination Appearance: Appropriate Consciousness: Alert Orientation: Person, Place, Date/Time Motor Activity: Other Speech: Hesitant, Stuttering Language: Adequate Fund of Knowledge: Adequate Attention and Concentration: Other (fair) Memory: Impaired Mood: Sad Affect: Other (increase range and intensity) Thought Process & Associations: Loose associations, Circumstantial Thought Content: Other (disorganized) Hallucination Type: None (denies) Delusion Type: Paranoid (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 Reviewed the documentation. I agree and concur with Dr. Lomeli's assessment and plan. (2) Parkinsons disease ICD Codes: G20 - Parkinson's disease Assessment & Plan Estimated LOS: days Request HC Surrog/Guard Advoc?: No Roque Landeros MD Jul 05, 2017 11:47
[2017-07-05 17:33] VITALS: BP 115/55; PULSE 62; RESP 16; TEMP 98.4; O2SAT 98
[2017-07-05] MEDS: LATANOPROST 0.005% OPHT SOLN 2.5 ML BTL EACH EYE SCH (20:42)
[2017-07-05] MEDS: CIPROFLOXACIN 500 MG TAB PO SCH (20:43)
[2017-07-05] MEDS: ATORVASTATIN 10 MG TAB PO SCH (20:44)
[2017-07-05] MEDS: REMOVE OLD NICOTINE PATCH T-DERMAL SCH (21:00)
[2017-07-05] MEDS ORDERED: INSULIN DETEMIR 100 UNITS/ML VIAL SQ SCH (21:00)
[2017-07-06] MEDS: CARBIDOPA/LEVODOPA 25 MG/100 MG TAB PO SCH (05:52)
[2017-07-06 06:23] VITALS: BP 138/75; PULSE 60; RESP 17; TEMP 98.2; O2SAT 96
[2017-07-06] MEDS: INSULIN ASPART SUPPLEMENTAL SCALE SQ SCH ×2 (08:00→11:33)
[2017-07-06] MEDS: ESCITALOPRAM OXALATE 10 MG TAB PO SCH (09:00)
[2017-07-06] MEDS: DORZOLAMIDE 2% OPTH SOLN 200 DROP/10 ML BTLO EACH EYE SCH (09:00)
[2017-07-06] MEDS: NICOTINE 21 MG/24 HR PATCH T-DERMAL SCH (09:00)
[2017-07-06] MEDS: amLODIPine BESYLATE 5 MG TAB PO SCH (09:00)
[2017-07-06] MEDS: MONTELUKAST SODIUM 10 MG TAB PO SCH (09:00)
[2017-07-06] MEDS: CIPROFLOXACIN 500 MG TAB PO SCH (09:00)
[2017-07-06] MEDS: GABAPENTIN 100 MG CAP PO SCH (09:00)
[2017-07-06] MEDS: ALPRAZolam 0.5 MG TAB PO SCH (09:02)
[2017-07-06] MEDS ORDERED: ROPI.5 PO (10:56)
[2017-07-06] MEDS ORDERED: SINE25TA PO (10:56)
[2017-07-06] MEDS ORDERED: GABA100C4 PO (10:56)
[2017-07-06] MEDS ORDERED: MONT10TA2 PO (10:56)
[2017-07-06] MEDS ORDERED: ESCI10TA PO (10:56)
[2017-07-06] MEDS ORDERED: ATOR10TA15 PO (10:56)
[2017-07-06] MEDS ORDERED: GABA400C5 PO (10:56)
[2017-07-06] MEDS ORDERED: ALPR.5 PO (10:56)
[2017-07-06] MEDS ORDERED: CIPR-9 PO (10:56)
[2017-07-06] MEDS ORDERED: AMLO5 PO (10:56)
[2017-07-06] MEDS ORDERED: LATA0.002 EACH EYE (10:56)
[2017-07-06] MEDS ORDERED: DORZ2SOL EACH EYE (10:56)
[2017-07-06] MEDS ORDERED: LEVEMIR SQ (10:56)
--- NOTE | 2017-07-06 11:01 | HHI.DS ---
Psychiatry Discharge Summary Inpatient Psychiatric care?: Yes Advance Directive: No Reason Not Provided: pt not interested at this time Mental Health AdvanceDirective: No Health Care Proxy: No Admission Admission Date Jul 03, 2017 at 23:22 Admission Diagnosis: (1) Acute adjustment disorder with mixed disturbance of emotions and conduct ICD Code: F43.25 - Adjustment disorder with mixed disturbance of emotions and conduct (2) Parkinsons disease ICD Code: G20 - Parkinson's disease Brief History She is an 82-year-old white male who comes here under [place] act signed of the [place] dated 07/03/17 and 2:55 PM the document reviewed. States Mr. Chisholm calls 911 constantly and upon arrival does not remember doing so when spoken to him he seems heavily confused at home and states he feels he may Phan keeps saying "it will be the end of me" and seems to need help sure it has apparently refused services from [facility] and he is believe that without assistance he may harm himself. Patient seen screened in the ED urine toxicology negative bladder: Negative. At the present time patient resting quietly in his bed. Nurse Susan present throughout session patient has some obvious flagrant Parkinson type tremor is noted both upper extremities right more than left. He does have tremulous speech however his oriented to person place time and situation. Though it appears she has some delusional type ideation related to the relationship with his caregiver. However DCF is involved. Patient is financially well off clinically be some financial issues going on in any event at this time patient does denies suicidality denies homicidality. Voices or visions. Patient denies any prior psychiatric contact or hospitalizations psychotropic medications though he is on Lexapro at the present time. Patient does have a caregiver in the home with them. Is uncertain about any other family members at this time. At this time patient does meet criteria for acute inpatient psychiatric hospitalization of the [place] act I'll do first opinion request second opinion both feel he does have capacity at this time. Though I will reconsider that and reevaluate that in the morning. The patient is an 82 years old man, brought to the hospital on the [place] at after he was found by police very confused, illogical and unable to give any logical answer. Consulted to me for second opinion. Patient is very confused, he reports good mood, denies suicidal and homicidal ideation, he denies visual and auditory hallucinations, but the patient doesn't know the reason of his hospitalization, he is disoriented in time and place. Tobacco Use In Past 30 Days: No Tobacco Past 30 Days Alcohol Use: Never Hospital Course Patient's hospital course was uneventful, he was calm cooperative for compliant with medications. The tremulousness noticed Parkinson's remain consistent and stable. He denied suicidality homicidality voices or visions. Is in verification of the safety of his home. At this time madelaine Rubio meets criteria for inpatient psychiatric hospitalization. Thus will be discharged to himself. To follow-up home health care and follow-up through [facility] Results Blood Pressure 138 / 75 Vital Signs Date Time Temp Pulse Resp B/P (MAP) Pulse Ox O2 Delivery O2 Flow Rate FiO2 07/06/17 06:23 98.2 60 17 138/75 (96) 96 07/03/17 21:15 Room Air Laboratory Tests Test 07/03/17 16:49 07/03/17 20:45 07/03/17 21:30 07/04/17 09:06 Red Blood Count 3.79 MIL/MM3 (4.50-5.90) Hemoglobin 12.0 GM/DL (13.0-17.0) Hematocrit 35.2 % (39.0-51.0) Platelet Count 144 TH/MM3 (150-450) Neutrophils (%) (Auto) 70.1 % (16.0-70.0) Blood Urea Nitrogen 28 MG/DL (7-18) 20 MG/DL (7-18) Random Glucose 266 MG/DL (74-106) 202 MG/DL (74-106) Alanine Aminotransferase (ALT/SGPT) LESS THAN 6 U/L (12-78) Estimat Glomerular Filtration Rate 66 ML/MIN (>89) 72 ML/MIN (>89) Urine Glucose (UA) 1000 mg/dL (NEG) Urine Leukocyte Esterase SMALL (NEG) Urine WBC 13 /hpf (0-5) Urine Bacteria RARE /hpf (NONE) Hemoglobin A1c 9.2 % (4.3-6.0) LDL Cholesterol 106 MG/DL (0-99) 25-Hydroxy Vitamin D Total 20.8 ng/ML (30-100) Laboratory Results Test 07/04/17 09:06 Cholesterol Level 175 MG/DL (120-200) HDL Cholesterol 46.1 MG/DL (40.0-60.0) Hemoglobin A1c 9.2 % (4.3-6.0) LDL Cholesterol 106 MG/DL (0-99) Triglycerides Level 117 MG/DL (42-150) Summary of Procedures None done Imaging Last Impressions Head CT 07/03/17 0000 Signed Impressions: Service Date/Time: Tuesday, July 04, 2017 00:13 - CONCLUSION: Negative noncontrast CT. Tim Spring MD Pending results at discharge: No Medications # of Antipsychotic meds at D/C: 0 Approp Antipsych med options 1 - Minimum of three failed multiple trials of monotherapy. 2 - Documented plan to taper to monotherapy due to previous use of multiple meds OR cross-taper in progress at D/C. 3 - Documentation of augmentation of Clozapine. 4 - Justification other than those listed in allowable values 1-3, document here : Discharge Discharge Date: Jul 06, 2017 Discharge Diagnosis: (1) Acute adjustment disorder with mixed disturbance of emotions and conduct Diagnosis: Principal ICD Code: F43.25 - Adjustment disorder with mixed disturbance of emotions and conduct (2) Parkinsons disease Diagnosis: Secondary ICD Code: G20 - Parkinson's disease Pt Condition on Discharge: Stable Discharge Disposition: Discharge Home Discharge Instructions Diet Instructions: As Tolerated, No Restrictions Activities you can perform: Regular-No Restrictions Scheduled Appointment: [facility] (also refer home health care) Discharge Time > 30 minutes Mental Status Examination Appearance: Appropriate Consciousness: Alert Orientation: Person, Place, Date/Time Motor Activity: Other Speech: Hesitant, Stuttering Language: Adequate Fund of Knowledge: Adequate Attention and Concentration: Other (fair) Memory: Impaired Mood: Sad Affect: Other (increase range and intensity) Thought Process & Associations: Loose associations, Circumstantial Thought Content: Other (disorganized) Hallucination Type: None (denies) Delusion Type: Paranoid (mildly focused on malter 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) Suicidal Ideation: No Suicidal Plan: No Suicidal Intention: No Homicidal Ideation: No Homicidal Plan: No Homicidal Intention: No Insight: Poor Judgment: Poor Discharge/Advance Care Plan Health Problems: (1) Acute adjustment disorder with mixed disturbance of emotions and conduct (2) Parkinsons disease Goals to promote your health * To prevent worsening of your condition and complications * To maintain your health at the optimal level Directions to meet your goals Take your medications as prescribed Follow your dietary instruction Follow activity as directed Keep your appointments as scheduled Take your immunizations and boosters as scheduled If your symptoms worsen call your PCP, if no PCP go to Urgent Care Center or Emergency Room For 04/12 questions related to your inpatient stay or results of tests pending at discharge, please contact Dr. Darrell Lomeli at Smoking is Dangerous to Your Health. Avoid second hand smoking Darrell Lomeli MD Jul 06, 2017 11:01
== END 2017-07-06 12:45 | disposition home or self-care (01) | DRG 882 ==
LOC: NEPD 16:19 → NEDA 23:22 → H250 07-04 00:50
PROVIDERS: ADMIT Psychiatry & Neurology Psychiatry; ATTEND Psychiatry & Neurology Psychiatry
DX: F43.25 Adjustment disorder with mixed disturbance of emotions and conduct (principal); E11.51 Type 2 diabetes mellitus with diabetic peripheral angiopathy without gangrene; E11.65 Type 2 diabetes mellitus with hyperglycemia; N39.0 Urinary tract infection, site not specified; G20 Parkinson's disease; K58.9 Irritable bowel syndrome, unspecified; I10 Essential (primary) hypertension; H40.9 Unspecified glaucoma; E78.00 Pure hypercholesterolemia, unspecified; Z95.0 Presence of cardiac pacemaker; Z79.4 Long term (current) use of insulin
CPT/HCPCS: 70450; 80048; 80053; 80061; 81001; 82306; 82607; 82948; 83036; 83605; 84439; 84443; 85025; 87077; 87086; 87186; 93005; 96372; 96374; J0696; J1815